=== PATIENT | female | born 1950 | race Caucasian/White ===

== ENCOUNTER 2017-06-08 05:25 | Day surgery (SDC) | payer MEDICARE ==
[2017-06-07 14:23] LABS: HEMATOCRIT 41.1 % (36.0-48.0); MCH 31.6 pg (26.0-34.0); MCHC 34.1 g/dL (31.0-37.0); MCV 92.8 fL (80.0-100.0); RBC 4.43 10x6/uL (4.00-5.40); RDW 12.2 % (11.5-14.5); WBC 8.1 10x3/uL (4.8-10.8)
[~2017-06-08] VITALS: Ht 157.5 cm; Wt 57.2 kg
[~2017-06-08 05:25] MED LIST: BIOTIN5 MG PO; LEVOTHYROXINE75 MCG PO; MOBIC7.5 MG PO
[2017-06-08] MEDS ORDERED: CLIMARA.0375 MG/2 TRANSDERM (09:23)
[2017-06-08] MEDS ORDERED: VITAMIN D250000 UNIT PO (09:25)
[2017-06-08] MEDS ORDERED: SLEEP AID25 M1 PO (09:25)
[2017-06-08] MEDS ORDERED: SUPER B COMPLE150 MG PO (09:26)
[2017-06-08] MEDS ORDERED: RED YEAST RICE600 MG PO (09:26)
[2017-06-08 09:36] VITALS: BP 110/66; Ht 157.5 cm; Wt 57.2 kg
--- NOTE | 2017-06-08 16:26 | NUR ---
DR SIM AT BEDSIDE DISCUSSING SWELLING TO THE LEFT HAND WITH THE PATIENT
--- NOTE | 2017-06-08 17:32 | NUR ---
IV DC WITH CATHER TIP INTACT
--- NOTE | 2017-07-13 14:19 | OP ---
PATIENT NAME: KVNG DUARTE MEDICAL RECORD: [id number] :46 LOCATION:[facility] ADMISSION DATE: SURGEON: ALIS THORPE MD DATE OF OPERATION: 06/08/2017 PREOPERATIVE DIAGNOSIS: Synovial cyst formation with right L5 radiculopathy. POSTOPERATIVE DIAGNOSES: Synovial cyst formation with right L5 radiculopathy, epidural mass. PROCEDURES: Lumbar laminectomy L4-L5 right with microdissection of synovial cyst, epidural mass and foraminotomy at L4-L5 on the right. DESCRIPTION AND TECHNIQUE: After induction of general endotracheal anesthesia, the patient was rolled prone on a Viktor frame. Lumbar spine was prepped and draped in usual sterile fashion. Fluoroscopic x-ray and spinal needle localized the L4-L5 interspace on the right side. A stab incision was created with a #11 blade. Series of dilators was used to advance the METRx retractor at L4-L5 interspace on the right side. A microscope and Midas Juan drill were used to perform a laminectomy, medial facetectomy, and foraminotomy at L4-L5 on the right. Hypertrophied ligamentum flavum was removed with Cloward rongeurs. Under microscopic illumination, there was an obvious synovial cyst compressing the dura on the right side. This was removed with micro dissectors and microscope. Following this, the L5 nerve root was decompressed well. Meticulous hemostasis was maintained throughout the wound. Wound was irrigated with copious amounts of Ancef irrigant solution. The fascia was closed with 2-0 Vicryl suture, the subdermal layer was closed with 3-0 Vicryl suture. The skin was reapproximated with Steri-Strips and benzoin. A sterile dressing was applied to the wound. The patient was awakened in good condition and taken to recovery. All counts were reported as correct. Estimated blood loss was minimal. TRANSINT:[id number] Voice Confirmation ID: [id number] DOCUMENT ID: [id number] ALIS THORPE MD at 1419 CC: [id number] DICTATION DATE: 06/25/17 1330 [place] PHOTOGRAPHER: 06/25/17 1348 [facility] 06/08/17 [place] [id number]
== END 2017-06-08 17:45 | disposition home or self-care (01) ==
LOC: D.OPS 05:25 → D.PAN 11:00 → D.OPS 11:00
PROVIDERS: Neurological Surgery
DX: M48.061 Spinal stenosis, lumbar region without neurogenic claudication (principal); M54.5 Low back pain; M71.38 Other bursal cyst, other site; Z01.812 Encounter for preprocedural laboratory examination; E03.9 Hypothyroidism, unspecified